=== PATIENT | male | born 1970 | race Caucasian/White ===

== ENCOUNTER 2020-10-11 17:28 | Emergency (ER) | payer BC, SELFPAY ==
[2020-10-11 17:29] VITALS: BP 143/90; PULSE 95; RESP 18; TEMP 36.8; O2SAT 98; BMI 44.9
--- NOTE | 2020-10-11 17:48 | XR_ITS ---
PROCEDURE INFORMATION: Exam: XR Chest Exam date and time: 10/11/2020 5:48 PM Age: 50 years old Clinical indication: Pain; Other: Patient states burning sensation running down entire left arm. ; Patient HX: Patient states burning sensation running down entire length of left arm. ; Additional info: Cough TECHNIQUE: Imaging protocol: XR of the chest. Views: 1 view. COMPARISON: No relevant prior studies available. FINDINGS: Lungs: Unremarkable. No consolidation. Pleural spaces: Unremarkable. No pleural effusion. No pneumothorax. Heart/Mediastinum: Unremarkable. No cardiomegaly. Bones/joints: Unremarkable. IMPRESSION: No acute findings.
--- NOTE | 2020-10-11 17:51 | ECG_ITS ---
APPROVED REPORT Exam: Resting ECG HR:94 bpm ECG Measurements Heart Rate 94 AXES VA 136 P 58 QRSd 92 QRS 57 QT 346 T 24 QTc 432 Conclusion Normal sinus rhythm Normal ECG Electronically signed by : Adelfo Allen, 10/16/2020 07:36:04
--- NOTE | 2020-10-11 18:03 | PC.NURSE ---
pt refused IV at this time
--- NOTE | 2020-10-11 18:08 | PC.NURSE ---
rad at bedside
[2020-10-11 18:34] LABS: Basophils # 0.1 K/mm3 (0-0.2); Basophils % 0.4 % (0.1-2.0); Eosinophils # 0.2 K/mm3 (0.0-0.4); Eosinophils % 2.1 % (0.1-12.0); Hematocrit 45.8 % (42.0-52.0); Hemoglobin 15.4 g/dL (14.1-18.0); Lymphocytes % 25.4 % (10-50); Mean Corpuscular HGB Conc 33.6 g/dL (31.8-35.4); Mean Corpuscular Hemoglobin 29.2 pg (27.0-31.2); Mean Corpuscular Volume 86.9 fl (80-94); Mean Platelet Volume 8.7 fl (7.4-10.4); Monocytes # 0.7 K/mm3 (0.1-1.0); Monocytes % 6.2 % (1.7-9.3); Neutrophils # 7.7 K/mm3 (1.8-7.8); Neutrophils % 65.9 % (37.0-80.0); Platelet Count 257 K/mm3 (142-424); Red Blood Count 5.27 M/mm3 (4.60-6.20); Red Cell Distribution Width 13.4 % (11.5-17.5); White Blood Count 11.6 K/mm3 (4.8-10.8)
--- NOTE | 2020-10-11 18:35 | [facility].EDGENADL ---
ED Disposition Clinical Impression: Paresthesia of arm Disposition: Home, Self-Care Condition on Discharge: Good Instructions: DI for Numbness/Tingling Prescriptions: methocarbamoL [Methocarbamol 500mg Tablet] 1,000 mg PO TID 10 Days #60 tab Transmission Status: Pending to [facility] Referrals: Francisco Martines [Primary Care Provider] - - Critical Care Critical Care Time: No Attestation: On 10/11/20, the high probability of a clinically significant, sudden or life threatening deterioration of the following system(s) required my full and direct attention, intervention and personal management. The time I documented below is in addition to time spent performing reported procedures but includes the following listed in this critical care notation. Medical Decision Making - Medical Records Medical records reviewed: Yes: I reviewed the patient's medical records. - Khoa Inquiry Pt receiving controlled substance: No Vital Signs: 10/11/20 17:29 Temperature 98.3 F Temperature Source Oral Pulse Rate [Left Radial] 95 H Respiratory Rate 18 Blood Pressure [Left Arm] 143/90 H Blood Pressure Mean [Left Arm] 107 Blood Pressure Source [Left Arm] Automatic Cuff Blood Pressure Position [Left Arm] Sitting 02 Sat by Pulse Oximetry 98 Oxygen Delivery Method Room Air - Lab Data Lab Results 10/11/20 18:05: WBC 11.6 H, RBC 5.27, Hgb 15.4, Hct 45.8, MCV 86.9, MCH 29.2, MCHC 33.6, RDW 13.4, Plt Count 257, MPV 8.7, Neut % (Auto) 65.9, Lymph % (Auto) 25.4, Crenshaw % (Auto) 6.2, Eos % (Auto) 2.1, Baso % (Auto) 0.4, Neut # (Auto) 7.7, Lymph # (Auto) 3.0, Crenshaw # (Auto) 0.7, Eos # (Auto) 0.2, Baso # (Auto) 0.1 10/11/20 18:05: Sodium 136, Potassium 4.2, Chloride 103, Carbon Dioxide 20 L, BUN 19, Creatinine 1.10, Glucose 137 H, Calcium 9.6, Total Bilirubin 1.1, AST 43, ALT 46, Alkaline Phosphatase 115, Troponin I < 0.01, NT-Pro-B Natriuret Pep 41.5, Total Protein 8.5 H, Albumin 4.8 Result diagrams: 10/11/20 18:05 10/11/20 18:05 Orders (Tests/Meds): ORDERS Category Date Time Status Brain Natriuretic Peptide Stat Lab 10/11/20 18:05 Results Comprehensive Metabolic Panel Stat Lab 10/11/20 18:05 Results Trop I [Troponin I] Stat Lab 10/11/20 18:05 Results Troponin I Q3H Lab 10/11/20 21:00 Ordered Troponin I Q3H Lab 10/12/20 00:00 Ordered - Radiology Data #1 Image(s): Chest Image Reviewed: Yes I reviewed the patient's radiology results, Yes I reviewed the patient's radiology image, Yes I have reviewed radiologist's interpretation Preliminary Findings: Normal/NAD - ECG Data Tracing #1 ECG initial impression date: 10/11/20 ECG initial impression time: 17:51 ECG normal with no acute: arrhythmias, ischemia, conduction abnormalities, chamber hypertrophy Normal Sinus Rhythm: Yes - Reevaluation(s) Time: 19:36 Reevaluation #1: On reevaluation, patient has remained pain-free. Troponin negative. No significant EKG changes. I do believe the patient's symptoms are likely peripheral in nature. He will be discharged with short course of muscle relaxer. He is to follow-up with his PCP in 48 hours. Given strict return precautions. Verbalized understanding. - ISABELL Score for Non-Stemi Age of Patient: 40-49 years old Heart Rate: 90-109 bpm Systolic Blood Pressure: 140-159 mmHg Serum Creatinine: <0.40 mg/dl CHF Killip Class: I-No CHF Other Risk Factors: None Non-Stemi Risk Score: 65 Risk Stratification: 1-108 = Low Risk Medical Decision Narrative: 50-year-old male presenting with some subacute left arm paresthesias. Patient does have some reproducible pain on examination. I do believe this is more related to a nerve or paresthesia. Patient does have some high blood pressure as well as borderline diabetes. However he is relatively low risk for acute coronary syndrome. Work-up will be initiated. General Adult HPI - General Chief complaint: PAIN Stated complaint: burning and numbness left arm
[2020-10-11 18:53] LABS: Chloride 103 mmol/L (98-107); Potassium 4.2 mmoL/L (3.5-5.1); Sodium 136 mmol/L (136-145)
[2020-10-11 18:55] LABS: Blood Urea Nitrogen 19 mg/dl (9-20); Creatinine Clearance Estimated 94 mL/min (50-200); Estimated Glomerular Filt Rate 71 ml/min (>60); GFR (African American) 86 ML/MIN (>60)
[2020-10-11 18:56] LABS: Alanine Aminotransferase 46 U/L (12-78); Albumin Level 4.8 g/dl (3.5-5.0); Albumin/Globulin Ratio 1.3 (1.1-1.8); Alkaline Phosphatase 115 U/L (38-126); Anion Gap 17.2 mEq/L (5-15); Aspartate Amino Transferase 43 U/L (17-59); Bilirubin,Total 1.1 mg/dl (0.2-1.3); Calcium 9.6 mg/dl (8.4-10.2); Carbon Dioxide 20 mmol/L (22.0-30.0); Globulin 3.7 g/dL (1.3-3.2); Glucose 137 mg/dl (74-100); Total Protein,Serum 8.5 g/dl (6.3-8.2)
[2020-10-11 19:06] LABS: NT Pro Brain Natriuretic Pep. 41.5 pg/mL (0-125)
[2020-10-11 19:11] LABS: Troponin I < 0.01 ng/ml (0.00-0.034)
[2020-10-11 19:15] VITALS: BP 132/79; PULSE 64; RESP 16; O2SAT 99
[2020-10-11 19:48] VITALS: BP 142/70; PULSE 62; RESP 16; TEMP 36.6; O2SAT 99
== END 2020-10-11 19:53 | disposition home or self-care (01) ==
PROVIDERS: Emergency Provider Emergency Medicine; PCP Family Medicine
DX: R20.2 Paresthesia of skin (principal); E11.9 Type 2 diabetes mellitus without complications
CPT/HCPCS: 71045; 80053; 83880; 84484; 85025; 93005; 99282